=== PATIENT | male | born 2000 | race Caucasian/White ===

== ENCOUNTER 2019-11-11 07:40 | Outpatient (CLI) | payer BC, SELFPAY ==
--- NOTE | ~2019-11-11 | MR_ITS ---
EXAMINATION: MR shoulder LT wo con DATE: 11/11/2019 08:41 INDICATION: Left shoulder pain TECHNIQUE: Magnetic resonance imaging (MRI) of the affected shoulder was performed without intravenou s contrast. Sequences included axial PD-weighted FS FSE, coronal oblique PD-weighted FS FSE, coronal oblique T2-weighted FS FSE, sagittal PD-weighted FS FSE, and sagittal T1-weighted SE. COMPARISON: None. FINDINGS: Coracoacromial arch: The acromion undersurface is flat in morphology (type I). The coracoacromial ligament is normal. Acro mioclavicular joint is normal. Rotator cuff: Of the infraspinatus and minimal supraspinatus tendinopathy without discrete tear. Teres minor and roberts bscapularis tendons are normal. Normal rotator cuff muscle bulk and signal. Biceps tendon, glenoid labrum and glenohumeral cartilage: Long head of the biceps tendon is normal. Glenoid labrum is normal. Glenohumeral cartilage is normal. Fluid: There is a small amount of fluid in the long head biceps tendon sheath which is disproportionate to t he physiologic amount of fluid in the glenohumeral joint consistent with bicipital tenosynovitis. No loose osteochondral bodies. No abnormal fluid signal in the subacromial/subdeltoid bursa to suggest b ursitis. Bones: Alignment is normal. Normal marrow signal with no edema, fracture or abnormal marrow replacing proces s. IMPRESSION: 1. Mild bicipital tenosynovitis. 2. Mild infraspinatus and minimal supraspinatus tendinopathy without discrete tear. Reviewed, dictated and finalized at location A. IMPRESSION: 1. Mild bicipital tenosynovitis. 2. Mild infraspinatus and minimal supraspinatus tendinopathy without discrete t ear.
== END 2019-11-11 07:41 | disposition home or self-care (01) ==
PROVIDERS: PCP Family Medicine; Visit Provider Orthopaedic Surgery
DX: M75.22 Bicipital tendinitis, left shoulder (principal)
CPT/HCPCS: 73221

== ENCOUNTER 2021-06-18 08:18 | Emergency (ER) | payer OTHER, BC, SELFPAY ==
[2021-06-18 08:36] VITALS: BP 124/84; PULSE 98; RESP 16; TEMP 37.4; O2SAT 99
--- NOTE | 2021-06-18 08:38 | ED.UPPEXIN ---
HPI - Extremity Injury (Upper) General Chief Complaint: Wound/Laceration Stated Complaint: cut left 2/3/4/5th digit finger Time Seen by Provider: 06/18/21 08:39 Source: patient Mode of arrival: ambulatory Limitations: no limitations History of Present Illness HPI narrative: 21-year-old male presents with abrasions to fingers of left hand. 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 Wounds cleaned and Band-Aids placed prior to arrival. Was told that he needed to be seen for work-related injury. Range of motion intact. All systems reviewed and negative except as noted above. Related Data Allergies Allergy/AdvReac Type Severity Reaction Status Date / Time Cat Dander Allergy Mild Uncoded 03/18/15 18:48 Cultivated Oat Pollen Allergy Mild Uncoded 03/18/15 18:48 Dust Allergy Mild Uncoded 03/18/15 18:48 Review of Systems Review of Systems: CONSTITUTIONAL: Denies fever, chills, or sweats. EYES: Denies visual changes, redness, or discharge. ENT: Denies rhinorrhea, congestion, sore throat, or otalgia. CARDIOVASCULAR: Denies chest pain, palpitations, or edema. RESPIRATORY: Denies cough or dyspnea. GASTROINTESTINAL: Denies abdominal pain, nausea, vomiting, or diarrhea. GENITOURINARY: Denies dysuria or hematuria. SKIN: Denies rash or itching. Abrasions to left hand. MUSCULOSKELETAL: Denies back pain, joint pain, or myalgia. NEUROLOGIC: Denies headache, numbness, or weakness. PSYCHIATRIC: Denies anxiety or depression. All other systems reviewed are negative, except as documented in HPI. PMFSH Comments At time of signature, agree with nursing past medical, surgical, social and family history. There is no relevant family history pertinent to the presenting complaint. Exam Narrative: GENERAL: This is a well-nourished, well-developed patient, in no apparent distress. HEAD: normocephalic, atraumatic. EYES: PERRL. Sclera clear/white. Vision is grossly intact. EARS: External ears normal, auditory canals clear and without drainage, TMs normal without perforation. Hearing grossly intact. NOSE: External nose normal with no obvious nasal discharge, nares without redness, no rhinorrhea. THROAT: Mucous membranes moist, posterior pharynx clear. NECK: Neck supple, non-tender without lymphadenopathy, masses or thyromegaly. CARDIOVASCULAR: Regular rate and rhythm without murmurs, gallops, or rubs. RESPIRATORY: Clear to auscultation. Breath sounds equal bilaterally. No wheezes, rales, or rhonchi. GASTROINTESTINAL: Abdomen soft, non-tender, nondistended. Bowel sounds are active. No hepato-splenomegaly, or palpable masses. No guarding. SKIN: warm, Dry, intact with no suspicious lesions or rash, good texture and turgor. Superficial abrasion across index, middle, ring, little finger. Each abrasion is approximately 0.5 cm. No bleeding NEURO: awake, alert, and oriented to person, place and time. There were no obvious focal neurologic abnormalities. EXTREMITIES: No joint tenderness, effusion, or edema noted. No calf tenderness. Negative Homans sign bilaterally. BACK: Nontender without deformity. No CVA tenderness. Course Course Level of Care: Express Care Visit Vital Signs Vital signs: Vital Signs Temperature 37.4 C 06/18/21 08:36 Pulse Rate 98 06/18/21 08:36 Respiratory Rate 16 06/18/21 08:36 Blood Pressure 124/84 06/18/21 08:36 Pulse Oximetry 99 06/18/21 08:36 Temperature 37.4 C 06/18/21 08:36 Pulse Rate 98 06/18/21 08:36 Respiratory Rate 16 06/18/21 08:36 Blood Pressure 124/84 06/18/21 08:36 Pulse Oximetry 99 06/18/21 08:36 Reviewed MDM - Extremity Injury (Upper) MDM Narrative Medical decision making narrative: Patient is aware of diagnosis, understands and agrees to treatment plan. Anticipatory guidance given. Patient agrees to follow-up as directed and is aware of reasons to seek care at the emergency department. Portions of this record may have
== END 2021-06-18 08:48 | disposition home or self-care (01) ==
PROVIDERS: Emergency Provider Nurse Practitioner Family
DX: S60.411A Abrasion of left index finger, initial encounter (principal); S60.413A Abrasion of left middle finger, initial encounter; S60.415A Abrasion of left ring finger, initial encounter; S60.417A Abrasion of left little finger, initial encounter; W26.8XXA Contact with other sharp object(s), not elsewhere classified, initial encounter
CPT/HCPCS: 99212; G0463

== ENCOUNTER 2021-06-19 09:06 | Emergency (ER) | payer BC, SELFPAY ==
--- NOTE | 2021-06-19 09:11 | ED.URI ---
HPI - URI/Sore Throat General Chief Complaint: Upper Respiratory Infection Stated Complaint: uri Time Seen by Provider: 06/19/21 09:13 Source: patient, family, RN notes reviewed and old records reviewed Mode of arrival: ambulatory Limitations: no limitations History of Present Illness HPI Narrative: 21-year-old presents to the [facility] with complaints of sinus congestion, runny nose, swollen lymph nodes last night. States they have been going intermittently since Wednesday. Has been taking DayQuil and Tylenol. Was seen yesterday for a different issue. Reports feeling febrile yesterday. Did not take his temperature. MD elicited complaint: rhinorrhea and nasal congestion Related Data Allergies Allergy/AdvReac Type Severity Reaction Status Date / Time Cat Dander Allergy Mild Other Uncoded 06/19/21 09:12 Cultivated Oat Pollen Allergy Mild Other Uncoded 06/19/21 09:12 Dust Allergy Mild Other Uncoded 06/19/21 09:12 Review of Systems Review of Systems: All systems reviewed & are unremarkable except as noted in HPI and below Constitutional: Constitutional: Reports as per HPI, Reports chills, Denies fever(s) and Denies headache(s) Eyes: Eyes: Reports no additional eye complaints ENT: Reports as per HPI, Denies vertigo, Denies dizziness, Denies headache(s), Reports nasal congestion and Denies sore throat Comments: Rhinorrhea Cardiovascular: Cardiovascular: Reports no additional cardiovascular complaints, Denies chest pain, Denies syncope, Denies rapid heart rate and Denies dyspnea Respiratory: Respiratory: Reports no additional respiratory complaints, Denies cough, Denies dyspnea and Denies wheezing Gastrointestinal: Gastrointestinal: Reports no additional gastrointestinal complaints, Denies abdominal pain, Denies diarrhea, Denies nausea and Denies vomiting Musculoskeletal: Musculoskeletal: Reports no additional musculoskeletal complaints and Denies numbness Integumentary/Breasts: Skin/Breast: Reports system reviewed and no additional complaints, except as docu Neurologic: Reports system reviewed and no additional complaints, except as documented, Denies vertigo, Denies dizziness, Denies syncope, Denies headache(s), Denies focal weakness and Denies numbness Psychiatric: Psychiatric: Reports no additional psychiatric complaints Allergic/Immunologic: Allergic/Immunologic: Reports no additional allergic/immunologic complaints PMFSH Past Medical History Medical History No significant medical problems Surgical History Surgical History (Updated 06/19/21 @ 09:25 by Rebecca Farley APRN) No pertinent past surgical history Social History Social History (Updated 06/19/21 @ 09:25 by Rebecca Farely APRN) Gender identity (if verbalized by the patient): Male Comments At the time of my signature, I reviewed and agree with the nursing past medical, surgical, social, and family history. There is no relevant family history pertinent to the patient complaint. Exam Const: General: cooperative, healthy appearing, no acute distress, well developed and alert Nutritional Appearance: well nourished and obese Orientation/consciousness: patient oriented x3 Limitations: no limitations HENMT: Head: normal to inspection Ears: external ears normal, TM's normal bilaterally and EAC's normal General nose exam: Normal nasal mucous membranes and turbinates present and Nasal discharge present clear Face and sinus: normal facial exam, sinuses nontender and no erythema Mouth: Yes Normal oral and palatal mucosa present and Yes lip normal Throat: tonsils normal, uvula midline and postnasal drainage Eyes: Conjunctivae: conjunctivae normal Pupils: Equal, round and reactive pupils present Neck: Neck: normal visual inspection, no lymphadenopathy and no meningeal signs Chest: Chest palpation & inspection: normal inspection of the chest Resp: Effort & Inspection: normal respiratory effort and no us
[2021-06-19 09:13] VITALS: BP 152/83; RESP 16; TEMP 37.8; O2SAT 99
== END 2021-06-19 09:30 | disposition home or self-care (01) ==
PROVIDERS: Emergency Provider Nurse Practitioner
DX: J30.9 Allergic rhinitis, unspecified (principal)
CPT/HCPCS: 99211; G0463

== ENCOUNTER 2021-10-20 10:07 | Outpatient (CLI) | payer OTHER, SELFPAY ==
--- NOTE | ~2021-10-20 | XR_ITS ---
EXAMINATION: XR_[id number]_CR, XR_[id number]_CR DATE: 10/20/2021 10:41 INDICATION: Bilateral foot pain. TECHNIQUE: 1. Dorsoplantar, two oblique and lateral views of the left foot were obtained. 2. Dorsoplantar, two oblique and lateral views of the right foot were obtained. COMPARISON: None. FINDINGS: Alignment of the bilateral feet is normal. Small corticated ossicle along the medial base of the left first proximal phalanx which appears to represent a chronic nonunited avulsion fracture fragment. Di fferential would include small heterotopic ossicle along the collateral ligament complex which could be either degenerative or sequela of prior soft tissue injury. Mild osteoarthritis at the bilateral f irst metatarsophalangeal joints. Remaining joint spaces are relatively preserved. Bilateral small Ach illes calcaneal spurs and tiny left plantar calcaneal spur. The soft tissues are unremarkable. No ank le joint effusion on either the left or right. IMPRESSION: 1. 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 No acute osseous abnormality at either foot. 2. 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 Reviewed, dictated and finalized at location A. IMPRESSION: 1. 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 No acute osseous abnormality at either foot. 2. 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
--- NOTE | ~2021-10-20 | XR_ITS ---
EXAMINATION: XR knee LT 3V DATE: 10/20/2021 10:41 INDICATION: Left infrapatellar pain TECHNIQUE: Standing AP, lateral and sunrise views of the left knee were obtained COMPARISON: None. FINDINGS: Alignment is normal. No fracture. No joint effusion/layering lipohemarthrosis. A couple small sclero tic bone in the proximal tibia. Soft tissues are unremarkable. IMPRESSION: 1. No left knee joint effusion or acute osseous abnormality. Reviewed, dictated and finalized at location A.
== END 2021-10-20 10:08 | disposition home or self-care (01) ==
LOC: ANHIMG 10:12
PROVIDERS: PCP Physician Assistant; Visit Provider Physician Assistant
DX: M25.562 Pain in left knee (principal); M19.071 Primary osteoarthritis, right ankle and foot; M19.072 Primary osteoarthritis, left ankle and foot
CPT/HCPCS: 73562; 73630

== ENCOUNTER 2022-06-12 10:44 | Emergency (ER) | payer OTHER, SELFPAY ==
[2022-06-12 10:54] VITALS: BP 110/76; PULSE 84; RESP 16; TEMP 37.1; O2SAT 99
--- NOTE | 2022-06-12 11:06 | ED.ABDPAIN ---
HPI - Abdominal Pain General Chief Complaint: Abdominal Pain Stated Complaint: Abdominal Pain Time Seen by Provider: 06/12/22 11:06 Source: patient and RN notes reviewed Mode of arrival: ambulatory Limitations: no limitations History of Present Illness HPI narrative: 22-year-old male presented for nausea, vomiting, diarrhea for 2 days. He endorses he believes this is food poisoning related to eating chicken. Had one episode of vomiting and intermittent diarrhea. States his had similar symptoms. Endorses symptoms are significantly improved today, and is requesting work note. Currently denies hematochezia, abdominal pain, fever or lethargy. Related Data Home Medications Medication Instructions Recorded Confirmed propranolol 60 mg tablet mg 06/12/22 Allergies Allergy/AdvReac Type Severity Reaction Status Date / Time Cat Dander Allergy Mild Other Uncoded 06/12/22 10:46 Cultivated Oat Pollen Allergy Mild Other Uncoded 06/12/22 10:46 Dust Allergy Mild Other Uncoded 06/12/22 10:46 Review of Systems Review of Systems: CONSTITUTIONAL: Denies body aches, fever, chills ENT: Denies rhinorrhea, congestion CARDIOVASCULAR: Denies chest pain, palpitations, or edema. RESPIRATORY: Denies cough or dyspnea. GASTROINTESTINAL: per HPI GENITOURINARY: Denies dysuria, hematuria, or CVA tenderness. SKIN: Denies rash, itching, or wounds. MUSCULOSKELETAL: Denies back pain, joint pain, or myalgia. NEUROLOGIC: Denies headache, numbness, tingling, or weakness. All systems reviewed & are unremarkable except as noted in HPI and below PMFSH Past Medical History Medical History No significant medical problems Surgical History Surgical History No pertinent past surgical history Social History Social History Gender identity (if verbalized by the patient): Male Comments At time of signature, I have reviewed and agree with nursing past medical, surgical, social and family history unless otherwise noted. Please see nursing chart for further information. There is no relevant family history pertinent to the presenting complaint Exam Narrative: GENERAL: Well-appearing, and in no acute distress. EYES: EOMI. Conjunctivae normal. ENT: Mucous membranes pink and moist. CHEST: No respiratory distress. Clear to auscultation. HEART: Regular rate and rhythm. No murmur appreciated. Normal peripheral pulses. ABDOMEN: abd soft, nondistended, normal active bowel sounds. Nontender abdomen. EXTREMITIES: Normal range of motion. No edema. SKIN: Warm, dry, no rash. Capillary refill normal. Normal skin turgor. NEURO: No focal deficits. Alert and oriented x3. PSYCH: Normal affect. Course Course Emergency Course: Patient is aware of diagnosis, understands and agrees to treatment plan. Anticipatory guidance given. Patient agrees to follow-up as directed and is aware of reasons to seek care at the emergency department. Portions of this record may have been created with voice recognition software Level of Care: Express Care Visit Vital Signs Vital signs: Vital Signs Temperature 98.8 F 06/12/22 10:54 Pulse Rate 84 06/12/22 10:54 Respiratory Rate 16 06/12/22 10:54 Blood Pressure 110/76 06/12/22 10:54 Pulse Oximetry 99 06/12/22 10:54 Oxygen Delivery Room Air 06/12/22 10:54 Temperature 98.8 F 06/12/22 10:54 Pulse Rate 84 06/12/22 10:54 Respiratory Rate 16 06/12/22 10:54 Blood Pressure 110/76 06/12/22 10:54 Pulse Oximetry 99 06/12/22 10:54 Oxygen Delivery Room Air 06/12/22 10:54 MDM - Abdominal Pain MDM Narrative Medical decision making narrative: Advised supportive measures and signs/symptoms to go to the ER. Pt is appropriate for outpt treatment and f/u. Differential Diagnosis Differential diagnosis: Likely abd
== END 2022-06-12 11:15 | disposition home or self-care (01) ==
PROVIDERS: Emergency Provider Nurse Practitioner Family; PCP Physician Assistant
DX: R11.2 Nausea with vomiting, unspecified (principal); R19.7 Diarrhea, unspecified
CPT/HCPCS: 99211; G0463